=== PATIENT | female | born 1955 | race Caucasian/White ===

== ENCOUNTER 2019-01-18 13:22 | Emergency (ER) | payer OTHER, MEDICARE ==
[~2019-01-18] VITALS: Ht 170.2 cm; Wt 102.1 kg
[2019-01-18] MEDS ORDERED: Flonase 0.05% N16 GM (16:14)
[2019-01-18] MEDS ORDERED: LEVSOD50 PO (16:14)
[2019-01-18] MEDS ORDERED: CYCL10 PO (16:15)
[2019-01-18] MEDS ORDERED: TRAN2 (16:15)
[2019-01-18] MEDS ORDERED: Zocor20 MG PO (16:16)
[2019-01-18] MEDS ORDERED: HYDCHL25 PO (16:16)
[2019-01-18] MEDS ORDERED: CELE200 PO (16:16)
[2019-01-18] MEDS ORDERED: PANT40 PO (16:16)
[2019-01-18] MEDS ORDERED: GABA800 PO (16:16)
[2019-01-18] MEDS ORDERED: Zantac150 MG (16:17)
[2019-01-18] MEDS ORDERED: ESTR2 PO (16:17)
[2019-01-18] MEDS ORDERED: ALBU90OI INH (16:17)
[2019-01-18 16:48] LABS: BASOPHILS ABSOLUTE AUTO 0.04 K/mm3 (0.00-0.23); BASOPHILS PERCENT AUTO 1 % (0-2); EOSINOPHILS ABSOLUTE AUTO 0.07 K/mm3 (0.00-0.68); EOSINOPHILS PERCENT AUTO 1 % (0-6); Hematocrit 39.2 % (33.0-51.0); Hemoglobin 12.9 g/dL (11.5-16.0); IMMATURE GRAN ABSOLUTE AUTO 0.01 K/mm3 (0.00-0.10); IMMATURE GRAN PERCENT AUTO 0 % (0-1); LYMPHOCYTES ABSOLUTE AUTO 2.35 K/mm3 (0.84-5.20); LYMPHOCYTES PERCENT AUTO 30 % (21-46); MONOCYTES ABSOLUTE AUTO 0.59 K/mm3 (0.16-1.47); MONOCYTES PERCENT AUTO 8 % (4-13); Mean Corpuscular HGB Conc 32.9 g/dL (31.5-36.5); Mean Corpuscular Volume 91 fL (80-100); Mean Platelet Volume 10.3 fL (9.1-12.4); NEUTROPHILS ABSOLUTE AUTO 4.74 K/mm3 (1.96-9.15); NEUTROPHILS PERCENT AUTO 61 % (41-73); Platelet Count 327 K/mm3 (150-400); RDW Coefficient Variation 12.8 % (11.7-14.2); RDW Standard Deviation 42.5 fL (35.1-46.3)
[2019-01-18 16:59] LABS: International Normalized Ratio 0.92; Prothrombin Time Results 9.8 Sec (9.7-11.5)
[2019-01-18 17:05] LABS: Anion Gap 6 mmol/L (6-16); Blood Urea Nitrogen 12 mg/dL (8-24); CO2, Blood 30 mmol/L (21-32); Calcium, Blood 9.3 mg/dL (8.5-10.1); Chloride, Blood 102 mmol/L (98-108); Creatinine, Blood 0.75 mg/dL (0.40-1.00); Glomerular Filtration Rate >60 (60-); Glucose, Blood 86 mg/dL (70-99); Potassium, Blood 3.3 mmol/L (3.5-5.5); Sodium, Blood 138 mmol/L (136-145)
[2019-01-18] MEDS ORDERED: ELIQUIS5 MG PO (17:06)
== END 2019-01-18 18:00 | disposition home or self-care (01) ==
LOC: ER 13:22
PROVIDERS: Emergency Medicine
DX: I82.4Z1 Acute embolism and thrombosis of unspecified deep veins of right distal lower extremity (principal); J45.909 Unspecified asthma, uncomplicated; M19.90 Unspecified osteoarthritis, unspecified site; Z88.8 Allergy status to other drugs, medicaments and biological substances; Z79.899 Other long term (current) drug therapy
CPT/HCPCS: 80048; 85025; 85610; 85730; 93971; 99284-25